=== PATIENT | male | born 1940 | race Asian ===

== ENCOUNTER 2024-01-19 10:11 | Emergency (ER) | payer BC, OTHER ==
[~2024-01-19] VITALS: Ht 172.7 cm; Wt 51.6 kg
[2024-01-19 11:06] VITALS: BP 160/85; PULSE 71; RESP 18; O2SAT 98
[2024-01-19 11:10] VITALS: TEMP 98.6
[2024-01-19] MEDS: ACETAMINOPHEN 500 MG TAB PO ONE (11:10)
== END 2024-01-19 13:29 | disposition left against medical advice (07) ==
LOC: ER 10:11
DX: S22.42XA Multiple fractures of ribs, left side, initial encounter for closed fracture (principal); I10 Essential (primary) hypertension; W01.0XXA Fall on same level from slipping, tripping and stumbling without subsequent striking against object, initial encounter; Y93.E1 Activity, personal bathing and showering; Y92.89 Other specified places as the place of occurrence of the external cause; Y99.8 Other external cause status
CPT/HCPCS: 71101